=== PATIENT | female | born 1975 | race Caucasian/White ===

== ENCOUNTER 2017-11-12 20:09 | Observation (INO) ==
[2017-11-12 20:38] LABS: Bilirubin,Urine Negative (Negative); Blood,Urine Trace (Negative); Clarity,Urine Cloudy (Clear); Color,Urine Yellow (Yellow); Glucose,Urine (UA) Normal (Normal); Ketones,Urine Negative (Negative); Leukocyte Esterase,Urine Negative (Negative); Nitrite,Urine Negative (Negative); Protein,Urine Negative (Neg-Trace); Specific Gravity,Urine 1.013 (1.010-1.025); Urobilinogen,Urine Normal (Normal)
[2017-11-12 20:41] LABS: Bacteria,Urine None Seen per hpf (None-Few); Hyaline Casts,Urine None Seen per lpf (None-Few); RBC,Urine 0-3 per hpf (0-3); Squamous Epithelial Cell,Urine Many per lpf (None-Few); WBC,Urine 0-3 per hpf (0-3)
[2017-11-12 21:10] LABS: Basophils # 0.1 K/mcL (0.0-0.2); Basophils % 0.8 %; Eosinophils # 0.1 K/mcL (0.0-0.6); Hematocrit 32.9 % (35.3-44.9); Hemoglobin 9.9 g/dL (11.5-15.4); Immature Granulocytes % 0.3 % (0-4); Lymphocytes # 1.4 K/mcL (0.6-4.6); Lymphocytes % 18.6 %; Mean Corpuscular HGB Conc 30.1 g/dL (31.6-35.5); Mean Corpuscular Hemoglobin 23.2 pg (28.0-33.3); Mean Platelet Volume 11.1 fL (9.4-12.4); Monocytes # 0.7 K/mcL (0.0-1.3); Monocytes % 8.8 %; Neutrophils # 5.5 K/mcL (1.6-8.9); Platelet Count 369 K/mcL (140-400); Red Blood Count 4.27 M/mcL (3.82-4.97); Red Cell Distribution Width 16.7 % (11.5-14.5); Segmented Neutrophils % 70.5 %
--- NOTE | 2017-11-12 21:23 | Emergency Department Note ---
Disposition Clinical Impression: Acute cholecystitis, Elevated LFTs Pancreatitis Qualifiers: Chronicity: acute Pancreatitis type: biliary Acute pancreatitis complication: no infection or necrosis Qualified Code(s): K85.10 - Biliary acute pancreatitis without necrosis or infection Anemia Qualifiers: Anemia type: unspecified type Qualified Code(s): D64.9 - Anemia, unspecified Disposition: Admitted As Inpatient Condition: Fair Time of Disposition: 12:25 Abdominal Pain HPI - General Chief Complaint: ED Nausea/Vomiting/Diarrhea Stated Complaint: "gallbladder" Time Seen by Provider: 11/12/17 21:12 Source: patient Mode of arrival: ambulatory Limitations: no limitations Nursing Notes Reviewed: Yes Vital Signs Reviewed: Yes - History of Present Illness HPI Narrative: Patient is a 42-year-old female who presents to [facility] ED with a chief complaint of right upper quadrant abdominal pain, nausea with intermittent vomiting. Past medical history significant for Crohn's disease on Humira. Had surgery at [facility] last July 2016 for her Crohn's disease in which they resected two thirds of her colon and her terminal ileum. States her symptoms have been constant over the last 24 hours. They have been intermittent over the last few weeks. States she saw her primary care physician who ordered an outpatient ultrasound. She had this done at [facility] today but does not know any results. Denies any fevers but has had chills. No chest pain, shortness of breath, problems with urination or bowel movements. Pt Subjective Complaint: abdominal pain Onset (ago): week(s) Consistency: intermittent, Worsening Location: RUQ, epigastric Pain Severity: moderate Pain Scale: 4 Quality: aching Radiation: RUQ, epigastric Improves with: nothing Worsens with: nothing Context: history of similar episodes Associated symptoms: Reports: nausea, vomiting, fever, chills. Denies: constipation Treatments prior to arrival: none - Related Data Allergies Allergy/AdvReac Type Severity Reaction Status Date / Time No Known Allergies Allergy Verified 11/12/17 20:16 All systems ED: reviewed and negative except as stated. Abdominal Pain PMH - Past Medical History Medical history: Reports: non-contributory Female Surgical History: Reports: - Social History Smoking status: Never smoker Alcohol use: Reports: none Drug use: Reports: none Physical Exam - General Limitations: no limitations General appearance: alert, in no apparent distress - Head Head exam: atraumatic, normocephalic, normal inspection - Eye Eye exam: Present: EOMI - ENT ENT exam: normal exam, normal oropharynx, mucous membranes dry - Neck Neck exam: Present: normal inspection, full ROM, trachea midline - Chest Chest inspection: Present: normal inspection, symmetric chest wall rise - Respiratory Respiratory exam: Present: normal lung sounds bilaterally - Cardiovascular Cardiovascular exam: Present: regular rate, normal rhythm, normal heart sounds - Abdominal Exam Abdominal exam: Present: soft, tenderness, normal bowel sounds Abdominal tenderness: Present: RUQ, moderate - Extremities Exam Extremities exam: Present: normal inspection, full ROM. Absent: tenderness, pedal edema - Neurological Exam Neurological exam: Present: alert, oriented X3 - Psychiatric Psychiatric exam: Present: normal affect, normal mood - Skin Skin exam: Present: warm, dry, intact, normal color Course Course Narrative: Patient seen and examined. Right upper quadrant abdominal pain. Recently had ultrasound outpatient today. We will obtain records from [facility]. Abdominal labs ordered. We will place an IV, give a liter of IV fluids and Toradol for pain. We will do an ED bedside ultrasound here. - Reevaluation(s) Reevaluation #1: Labwork shows some mild anemia with a hemoglobin of 9.9. Elevated LFTs. Lipase is also mildly elevated. Per [facility], the ultrasound results have not yet been read and will not be read until tomorrow likely. ED ultrasound here did show signs of a stone and some biliary sludge and mild wall thickening. No signs of pericholecystic fluid at this time. positive sonographic Silva sign. Common bile duct was not visualized. Impression: acute cholecystitis I discussed with surgeon Dr. Pruitt who states he would like the patient to be admitted to medicine. Would like so symptoms started. I discussed with hospitalist Dr. Cota who has accepted patient for admission. Would like a CT abdomen and pelvis with IV contrast ordered as well. Time: 23:50 Vital Signs Temperature 98.1 F 11/12/17 20:10 Pulse Rate 84 11/12/17 20:10 Respiratory Rate 18 11/12/17 20:10 Blood Pressure 124/79 11/12/17 20:10 O2 Sat by Pulse Oximetry 99 11/12/17 20:10 Temperature 98.0 F 11/13/17 00:07 Pulse Rate 76 11/13/17 00:07 Respiratory Rate 14 11/13/17 00:07 Blood Pressure 110/76 11/13/17 00:07 O2 Sat by Pulse Oximetry 97 11/13/17 00:07 Oxygen Delivery Oxygen Delivery Room Air Abdominal Pain - Medical Records Medical records reviewed: Yes I reviewed the patient's medical records. - Lab Data Lab results reviewed: Yes I reviewed the patient's lab results. Result diagrams: 11/12/17 20:43 11/12/17 20:43 Lab Results 11/12/17 11/12/17 11/12/17 Range/Units 20:24 20:43 20:43 WBC 7.7 (4.3-11.1) K/mcL RBC 4.27 (3.82-4.97) M/mcL Hgb 9.9 L (11.5-15.4) g/dL Hct 32.9 L (35.3-44.9) % MCV 77.0 L (83.0-100.0) fL MCH 23.2 L (28.0-33.3) pg MCHC 30.1 L (31.6-35.5) g/dL RDW 16.7 H (11.5-14.5) % Plt Count 369 (140-400) K/mcL MPV 11.1 (9.4-12.4) fL Immature Gran % 0.3 (0-4) % Seg Neutrophils % 70.5 % Lymphocytes % 18.6 % Monocytes % 8.8 % Eosinophils % 1.0 % Basophils % 0.8 % Neutrophils # 5.5 (1.6-8.9) K/mcL Lymphocytes # 1.4 (0.6-4.6) K/mcL Monocytes # 0.7 (0.0-1.3) K/mcL Eosinophils # 0.1 (0.0-0.6) K/mcL Basophils # 0.1 (0.0-0.2) K/mcL Sodium 137 (136-145) mEq/L Potassium 4.3 (3.5-5.1) mEq/L Chloride 105 (98-107) mEq/L Carbon Dioxide 23 (23-29) mEq/L BUN 8 (6-20) mg/dL Creatinine 0.79 (0.60-1.20) mg/dL Est GFR ( Amer) > 60 (> 60) Est GFR (Non-Af Amer) > 60 (> 60) BUN/Creatinine Ratio 10 (6-26) Glucose 101 (70-105) mg/dL Calculated Osmolality 282 (280-300) Calcium 9.6 (8.6-10.3) mg/dL Total Bilirubin 2.4 H (0.3-1.0) mg/dL Direct Bilirubin 1.4 H (0.0-0.2) mg/dL Indirect Bilirubin 1.0 (0.0-1.2) mg/dL AST 376 H (13-39) Units/L ALT 380 H (7-52) Units/L Alkaline Phosphatase 230 H (34-104) Units/L Serum Total Protein 8.2 (6.4-8.9) g/dL Albumin 4.2 (3.5-5.7) g/dL Globulin 4.0 H (2.4-3.5) g/dL Albumin/Globulin Ratio 1.1 (1.1-2.2) Lipase 85 H (11-82) Units/L Urine Color Yellow (Yellow) Urine Clarity Cloudy A (Clear) Urine pH 7.0 (5.0-8.0) pH Units Ur Specific [place] 1.013 (1.010-1.025) Urine Protein Negative (Neg-Trace) mg/dL Urine Glucose (UA) Normal (Normal) mg/dL Urine Ketones Negative (Negative) mg/dL Urine Blood Trace H (Negative) Urine Nitrite Negative (Negative) Urine Bilirubin Negative (Negative) Urine Urobilinogen Normal (Normal) mg/dL Ur Leukocyte Esterase Negative (Negative) Urine Microscopic RBC 0-3 (0-3) per hpf Urine Microscopic WBC 0-3 (0-3) per hpf Ur Squamous Epith Cells Many H (None-Few) per lpf Urine Bacteria None Seen (None-Few) per hpf Hyaline Casts None Seen (None-Few) per lpf Ur Culture Indicated? NO (NO) - Radiology Data Radiology results reviewed: Yes I reviewed the patient's radiology results. Abdomen/Pelvis CT 11/12/17 22:41 IMPRESSION: Subtle mild haziness in the upper abdomen in the region of the duodenum and central mesentery with a few scattered reactive lymph nodes. This is nonspecific but potential etiologies would include mild duodenitis. Pancreatitis less favored. Cholelithiasis without convincing features of cholecystitis. Consider correlation with cholestatic parameters and ultrasound there is ongoing concern. Appendix not discretely identified however there are no pericecal inflammatory changes. Nonobstructive right nephrolithiasis. No left nephrolithiasis, ureteral or urinary bladder stone. D/ / Lemuel Villafuerte / Lemuel Villafuerte Interpreting Provider: Lemuel Villafuerte
[2017-11-12 21:27] LABS: Alanine Aminotransferase 380 Units/L (7-52); Albumin 4.2 g/dL (3.5-5.7); Albumin/Globulin Ratio 1.1 (1.1-2.2); Alkaline Phosphatase 230 Units/L (34-104); Aspartate Amino Transferase 376 Units/L (13-39); BUN/Creatinine Ratio 10 (6-26); Bilirubin,Direct 1.4 mg/dL (0.0-0.2); Bilirubin,Total 2.4 mg/dL (0.3-1.0); Blood Urea Nitrogen 8 mg/dL (6-20); Calcium 9.6 mg/dL (8.6-10.3); Carbon Dioxide 23 mEq/L (23-29); Chloride 105 mEq/L (98-107); Glucose 101 mg/dL (70-105); Lipase 85 Units/L (11-82); Osmolality,Calculated 282 (280-300); Potassium 4.3 mEq/L (3.5-5.1); Sodium 137 mEq/L (136-145); Total Protein 8.2 g/dL (6.4-8.9); eGFR For African Americans > 60 (> 60); eGFR For Non-African Americans > 60 (> 60)
[2017-11-12] MEDS ORDERED: Ondansetron 4 MG/2 ML VIAL IVP ONE (21:36)
[2017-11-12] MEDS ORDERED: 0.9 % Sodium Chloride 1,000 ML IVC ONE (21:36)
[2017-11-12] MEDS ORDERED: Ketorolac 15 MG/ML VIAL IVP ONE (21:55)
--- NOTE | 2017-11-12 21:55 | Emergency Department Note ---
Disposition Clinical Impression: Acute cholecystitis, Pancreatitis, Elevated LFTs, Anemia Disposition: Admitted As Inpatient Condition: Fair General Adult HPI - General Chief complaint: ED Nausea/Vomiting/Diarrhea Stated complaint: "gallbladder" Time Seen by Provider: 11/12/17 21:12 Source: patient Limitations: no limitations Nursing Notes Reviewed: Yes Vital Signs Reviewed: Yes - History of Present Illness Pain Scale: 4 - Related Data Home Medications Medication Instructions Recorded Confirmed Adalimumab [Humira] 40 mg SQ Q2W 11/13/17 11/13/17 Cholecalciferol (D-3) [Vitamin D] 2,000 unit PO DAILY 11/13/17 11/13/17 Cyanocobalamin (B-12) [Vitamin B12] 1,000 mcg IM QMONTH 11/13/17 11/13/17 Previous Rx's Medication Instructions Recorded Ferrous Sulfate 325 mg PO DAILY #30 tablet 11/13/17 Ondansetron HCl [Zofran] 4 mg PO Q8HR PRN #21 tab 11/13/17 Oxycodone HCl/Acetaminophen 1 each PO Q8H PRN 4 Days #12 tablet 11/13/17 [Percocet 5-325 mg Tablet] Allergies Allergy/AdvReac Type Severity Reaction Status Date / Time No Known Allergies Allergy Verified 11/13/17 08:12 Past Medical History - Past Medical History Medical history: Reports: non-contributory - Social History Smoking Status: Never smoker Alcohol use: Reports: none Drug use: Reports: none Physical Exam - General Limitations: no limitations General appearance: alert, in no apparent distress Course Vital Signs Temperature 98.1 F 11/12/17 20:10 Pulse Rate 84 11/12/17 20:10 Respiratory Rate 18 11/12/17 20:10 Blood Pressure 124/79 11/12/17 20:10 O2 Sat by Pulse Oximetry 99 11/12/17 20:10 Temperature 98.2 F 11/13/17 07:53 Pulse Rate 76 11/13/17 07:53 Respiratory Rate 14 11/13/17 07:53 Blood Pressure 112/70 11/13/17 07:53 O2 Sat by Pulse Oximetry 96 11/13/17 07:53 Oxygen Delivery Oxygen Delivery Room Air Medical Decision Making - MDM Narrative Medical decision making narrative: 2230 hrs.: Bedside ultrasound looks a has some sludge and possibly a stone on our view. Regarding talk to surgery about her and see if we can bring her into the hospital. She is in agreement with this plan. 2250 hrs.: Spoke with surgery. They will go and see her admitted to hospitalist. Hospitalist request a CT of the abdomen. Which we will place and get her admitted. She is in agreement with the plan. Surgery consult placed. - Lab Data Result diagrams: 11/13/17 04:37 11/13/17 04:37 Lab Results 11/12/17 11/12/17 11/12/17 Range/Units 20:24 20:43 20:43 WBC 7.7 (4.3-11.1) K/mcL RBC 4.27 (3.82-4.97) M/mcL Hgb 9.9 L (11.5-15.4) g/dL Hct 32.9 L (35.3-44.9) % MCV 77.0 L (83.0-100.0) fL MCH 23.2 L (28.0-33.3) pg MCHC 30.1 L (31.6-35.5) g/dL RDW 16.7 H (11.5-14.5) % Plt Count 369 (140-400) K/mcL MPV 11.1 (9.4-12.4) fL Immature Gran % 0.3 (0-4) % Seg Neutrophils % 70.5 % Lymphocytes % 18.6 % Monocytes % 8.8 % Eosinophils % 1.0 % Basophils % 0.8 % Neutrophils # 5.5 (1.6-8.9) K/mcL Lymphocytes # 1.4 (0.6-4.6) K/mcL Monocytes # 0.7 (0.0-1.3) K/mcL Eosinophils # 0.1 (0.0-0.6) K/mcL Basophils # 0.1 (0.0-0.2) K/mcL Sodium 137 (136-145) mEq/L Potassium 4.3 (3.5-5.1) mEq/L Chloride 105 (98-107) mEq/L Carbon Dioxide 23 (23-29) mEq/L BUN 8 (6-20) mg/dL Creatinine 0.79 (0.60-1.20) mg/dL Est GFR ( Amer) > 60 (> 60) Est GFR (Non-Af Amer) > 60 (> 60) BUN/Creatinine Ratio 10 (6-26) Glucose 101 (70-105) mg/dL Calculated Osmolality 282 (280-300) Calcium 9.6 (8.6-10.3) mg/dL Total Bilirubin 2.4 H (0.3-1.0) mg/dL Direct Bilirubin 1.4 H (0.0-0.2) mg/dL Indirect Bilirubin 1.0 (0.0-1.2) mg/dL AST 376 H (13-39) Units/L ALT 380 H (7-52) Units/L Alkaline Phosphatase 230 H (34-104) Units/L Serum Total Protein 8.2 (6.4-8.9) g/dL Albumin 4.2 (3.5-5.7) g/dL Globulin 4.0 H (2.4-3.5) g/dL Albumin/Globulin Ratio 1.1 (1.1-2.2) Lipase 85 H (11-82) Units/L Urine Color Yellow (Yellow) Urine Clarity Cloudy A (Clear) Urine pH 7.0 (5.0-8.0) pH Units Ur Specific [place] 1.013 (1.010-1.025) Urine Protein Negative (Neg-Trace) mg/dL Urine Glucose (UA) Normal (Normal) mg/dL Urine Ketones Negative (Negative) mg/dL Urine Blood Trace H (Negative) Urine Nitrite Negative (Negative) Urine Bilirubin Negative (Negative) Urine Urobilinogen Normal (Normal) mg/dL Ur Leukocyte Esterase Negative (Negative) Urine Microscopic RBC 0-3 (0-3) per hpf Urine Microscopic WBC 0-3 (0-3) per hpf Ur Squamous Epith Cells Many H (None-Few) per lpf Urine Bacteria None Seen (None-Few) per hpf Hyaline Casts None Seen (None-Few) per lpf Ur Culture Indicated? NO (NO) Attestation Statement - Attestation Attestation: I examined this patient and my medical decision-making was reviewed with the Resident Physician. I agree with the documented findings, disposition and treatment plan as described except to the extent set forth below. Patient seen and evaluated by the ER resident and myself, I agree with her evaluation and management plan, supervised care the patient's stay. Patient presents today with right upper quadrant pain. She has had a history of gallbladder disease. Had an ultrasound done at an outside hospital. We are going to do labs and her try to make her more comfortable and see if we can get her ultrasound results from the other hospital. 2154 hrs. Outside hospital says those results are not printed yet. So we will have to reorder an ultrasound here today.
[2017-11-12] MEDS ORDERED: Piperacillin/Tazobactam 3.375 GM in 0.9 % Sodium Chloride Mini Bag 100 ML IVPB ONE (22:32)
[2017-11-12] MEDS ORDERED: Isovue-370 500 ML INFUS..BTL IV ONE (22:41)
[2017-11-13] MEDS ORDERED: Naloxone 0.4 MG/ML INJ IVP PRN (01:08)
[2017-11-13] MEDS ORDERED: 0.9 % Sodium Chloride 1,000 ML IVC SCH (01:15)
[2017-11-13] MEDS ORDERED: *HR* FentaNYL (PF) 100 MCG/2 ML VIAL IVP PRN (01:41)
--- NOTE | 2017-11-13 01:41 | Internal Med History&Physical ---
Date of Encounter: 11/13/17 Time of Encounter: 00:50 Internal Medicine - H&P: HPI Chief complaint: RUQ pain Admitted From: Emergency Dept Plans for Post Hospital Care: Home History of present illness: Ms. Pressley is a 42 year old female [facility] onset of right upper quadrant abdominal pain, protracted nausea, vomiting, diarrhea, and pain radiating to her shoulder blades from her right upper quadrant area. This was all precipitated by eating a hot dog at a work function earlier today. She has had some GI upset and right upper quadrant pain for the last couple weeks. However, today's event was acute and debilitating. She therefore came to the ER and was felt to have symptoms and findings consistent with cholecystitis. She had right upper quadrant ultrasound performed at [facility] in [place] today, but the results have not been finalized yet and are unavailable. A bedside ultrasound in the ER performed by ER staff suggested gallbladder sludge and possible stones. Patient was admitted to hospitalist service with general surgery consult for possible need for cholecystectomy. Patient does have a history of Crohn's disease with partial bowel resection within the past year. As such, I requested a CT scan to be performed in the ER, which reveals patient to have some duodenitis and possible gallbladder stone findings as noted by radiology. Upon my assessment of the patient, she is quite tender in the right upper quadrant. She also has some significant nausea but no vomiting presently. She confirms that certain foods bother her, particularly greasy and fatty foods. Family history is negative for any gallbladder disease or IBD. She follows with her GI specialist at [facility] in [place] and has been on Humira for the last 7 years. She sees a colorectal surgeon at [facility] and had her partial colon resection performed there last year. Past Med Surg Social Fam HX - Past Medical History Attestation: Yes The following information was validated with the patient. Source: patient, old records reviewed Medical history: other (Crohn's) Psychiatric history: no psych history - Past Surgical History Surgical History: colectomy (partial) - Social History Smoking Status: Never smoker Alcohol use: none Drug use: none Occupational status: employed Current living situation: Home, With Family Activity Level: Independent ambulation Recent Out of Country Travel Within the Last 8 Weeks: No - Additional Family History Additional family history: No FH GB disease or IBD Internal Medicine - H&P: Meds 3 Allergy/AdvReac Type Severity Reaction Status Date / Time No Known Allergies Allergy Verified 11/12/17 20:16 - Constitutional Constitutional: no chills, no fever(s), no night sweats - EENT Eyes: no blurry vision, no change in vision Ears: no ear pain, no tinnitus Nose, mouth and throat: no nasal congestion, no sinus pressure, no sore throat - Cardiovascular Cardiovascular ROS IM: no chest pain, no dyspnea, no dyspnea on exertion - Respiratory Respiratory: no cough, no hemoptysis, no dyspnea on exertion, no chest congestion, no excessive phlegm production - Gastrointestinal Gastrointestinal: abdominal pain, diarrhea, nausea, vomiting, no hematemesis, no hematochezia, no melena - Genitourinary Genitourinary: no dysuria, no flank pain, no hematuria - Musculoskeletal Musculoskeletal ROS IM: no arthralgias, no back pain, no muscle cramps - Integumentary Integumentary IM: no rash, no jaundice - Neurological Neurological ROS: no dizziness, no focal weakness, no frequent falls, no headache(s) - Psychiatric Psychiatric: no anxiety, no depression - Endocrine Endocrine IM: no polydipsia, no polyuria - Allergic/Immunologic Allergic/Immunologic: GI upset with certain foods, no wheezing - Constitutional Vitals: Temp Pulse Resp BP Pulse Ox 98.0 F 76 14 110/76 97 11/13/17 00:07 11/13/17 00:07 11/13/17 00:07 11/13/17 00:07 11/13/17 00:07 General appearance: Present: cooperative, mild distress, A&O X 3, pleasant, answers questions appropriately - Head Head exam: Present: normal inspection - Eye Eye exam: Present: EOMI, normal appearance, PERRL. Absent: scleral icterus Pupils: Present: normal accommodation - ENT ENT exam: Present: mucous membranes dry, normal exam, normal oropharynx - Neck Neck exam general surgery: Present: supple. Absent: tenderness, nuchal rigidity , thyromegaly - Respiratory Respiratory exam: Present: CTAB. Absent: chest wall tenderness, rales, respiratory distress, rhonchi, wheezes - Cardiovascular Cardiovascular exam: Present: RRR, +S1, +S2. Absent: diastolic murmur, systolic murmur - GI/Abdominal GI/Abdominal exam: Present: guarding, normal bowel sounds, soft, tenderness (RUQ ), no peritoneal signs. Absent: hepatomegaly, rebound, splenomegaly - Extremities Exam Extremities exam: Present: normal capillary refill, normal inspection, radial pulses palpable and symmetrical. Absent: calf tenderness, tenderness, warm - Back Exam Back exam: Present: normal inspection. Absent: CVA tenderness (L), CVA tenderness (R) - Neurological Exam Neurological exam: Present: alert, CN II-XII intact, oriented X3, no focal deficits, strengths equal and symetr throughout - Psychiatric Psychiatric exam: Present: normal affect, normal mood - Skin Skin exam: Present: dry, warm. Absent: rash Internal Med - H&P Results - Labs CBC & Chem 7: 11/12/17 20:43 11/12/17 20:43 - Assessment and plan (1) Acute cholecystitis Current Visit: Yes Status: Suspected Assessment and plan: 1. Try to obtain GB U/S report/images from [facility]. 2. npo. 3. Will continue IV Zosyn and IVF Flagyl. 4. Surgery consulted through ER -- Dr. Pruitt. 5. Pain and nausea control. (2) Crohns disease Current Visit: Yes Status: Chronic Assessment and plan: 1. Patient follows with GI at [facility] -- outpatient follow up. 2. May need to obtain old surgical record from [facility] regarding her recent partial colon resection last year. Qualifiers: Gastrointestinal tract location: small and large intestine Digestive disease complication type: other complication Qualified Code(s): K50.818 - Crohn's disease of both small and large intestine with other complication (3) Elevated LFTs Current Visit: Yes Status: Acute Assessment and plan: 1. Likely due to GB disease. 2. Trend LFT's. 3. Consult GI if necessary. (4) DVT prophylaxis Current Visit: Yes Status: Acute Assessment and plan: 1. Heparin SQ.
[2017-11-13] MEDS ORDERED: *HR* Heparin 5,000 UNIT/ML VIAL SQ SCH (06:00)
[2017-11-13] MEDS ORDERED: Pantoprazole 40 MG VIAL IVP SCH (06:00)
[2017-11-13 06:10] LABS: Basophils # 0.1 K/mcL (0.0-0.2); Basophils % 0.9 %; Eosinophils # 0.1 K/mcL (0.0-0.6); Eosinophils % 2.3 %; Hematocrit 27.7 % (35.3-44.9); Hemoglobin 8.4 g/dL (11.5-15.4); Immature Granulocytes % 0.5 % (0-4); Immature Platelets 6.7 % (1.1-6.1); Lymphocytes # 1.3 K/mcL (0.6-4.6); Lymphocytes % 22.4 %; Mean Corpuscular HGB Conc 30.3 g/dL (31.6-35.5); Mean Corpuscular Hemoglobin 23.5 pg (28.0-33.3); Mean Corpuscular Volume 77.6 fL (83.0-100.0); Mean Platelet Volume 11.7 fL (9.4-12.4); Monocytes # 0.6 K/mcL (0.0-1.3); Monocytes % 10.4 %; Neutrophils # 3.7 K/mcL (1.6-8.9); Platelet Count 304 K/mcL (140-400); Red Blood Count 3.57 M/mcL (3.82-4.97); Red Cell Distribution Width 16.3 % (11.5-14.5); Segmented Neutrophils % 63.5 %
[2017-11-13 06:15] LABS: Alanine Aminotransferase 286 Units/L (7-52); Albumin 3.5 g/dL (3.5-5.7); Albumin/Globulin Ratio 1.1 (1.1-2.2); Alkaline Phosphatase 202 Units/L (34-104); Aspartate Amino Transferase 206 Units/L (13-39); BUN/Creatinine Ratio 10 (6-26); Bilirubin,Total 1.3 mg/dL (0.3-1.0); Blood Urea Nitrogen 7 mg/dL (6-20); Calcium 8.5 mg/dL (8.6-10.3); Carbon Dioxide 21 mEq/L (23-29); Chloride 112 mEq/L (98-107); Globulin 3.3 g/dL (2.4-3.5); Glucose 100 mg/dL (70-105); Lipase 76 Units/L (11-82); Magnesium 2.1 mg/dL (1.6-2.6); Osmolality,Calculated 284 (280-300); Potassium 3.9 mEq/L (3.5-5.1); Sodium 138 mEq/L (136-145); Total Protein 6.8 g/dL (6.4-8.9); eGFR For African Americans > 60 (> 60); eGFR For Non-African Americans > 60 (> 60)
[2017-11-13 06:44] LABS: Activated Partial Thrombo Time 29.8 Seconds (26.0-36.0)
[2017-11-13 06:45] LABS: Prothrombin Time 10.9 Seconds (9.4-12.1)
--- NOTE | 2017-11-13 07:35 | General Surg History&Physical ---
Date of Encounter: 11/13/17 Time of Encounter: 07:34 Assessment and Plan (1) Biliary colic Current Visit: Yes Status: Acute 42F h/o crohn's now with biliary colic x 5 weeks, worsening over last 2 days; US and CT consistent with cholelithiasis; no evidence of obstruction on labs or PE; pain control CLD okay for discharge with plan for surgery in AM discussed with patient; The assessment and plan as outlined above was discussed with the patient and/or family members who expressed understanding and agreement. All questions were answere. History of Present Illness Chief complaint: abdominal pain HPI: Ms. Pressley is a 42 year old female h/o Crohn's disease s/p what sounds like an extended right christopher colectomy peformed laparoscopically who presents with a 5 week history of recurrent post prandial right upper quadrant abdominal pain with associated nausea and bloating. She also states that over the last week the pain radiates to her right shoulder. She states that since she started eating more meat and fried foods, her symptoms have become more frequent lasting up to six hours at times. She was admitted because her pain was persistent. Surgery was consulted for management recommendations. Past Med Surg Social Fam HX - Past Medical History Medical history: other (Crohn's) Psychiatric history: no psych history - Past Surgical History Surgical History: colectomy (partial) - Social History Smoking Status: Never smoker Alcohol use: none Drug use: none - Additional Family History Additional family history: non contributory Medications and Allergies Adalimumab [Humira] 40 mg SQ Q2W 11/13/17 [History] Cholecalciferol (D-3) [Vitamin D] 2,000 unit PO DAILY 11/13/17 [History] Cyanocobalamin (B-12) [Vitamin B12] 1,000 mcg IM QMONTH 11/13/17 [History] 3 Allergy/AdvReac Type Severity Reaction Status Date / Time No Known Allergies Allergy Verified 11/13/17 08:12 Review of Systems All systems PM: The remainder of the systems were reviewed and are negative General Surgery Exam Initial Vital Signs Temp Pulse Resp BP Pulse Ox 98.1 F 84 18 124/79 99 11/12/17 20:10 11/12/17 20:10 11/12/17 20:10 11/12/17 20:10 11/12/17 20:10 - General physical appearance well developed, no distress - Eyes other (no scleral icterus), normal ocular movement - ENT normocephalic - Neck no lymphadectomy - Respiratory normal expansion, normal respiratory effort - Cardiovascular Cardiovascular exam: Present: RRR - Abdomen Abdomen general surgery: Present: soft, tender Abdominal Tenderness: Present: RUQ ((-)hood's sign;) - Integumentary Integumentary general surgery: Present: warm and dry - Neurologic Present: CN 2-12 grossly intact - Musculoskeletal Present: normal posture, other (FROM in UE/LE bilaterally) - Psychiatric Psychiatric general surgery: Present: A&Ox3 Results - Labs 11/13/17 04:37 11/13/17 04:37 Abnormal lab results RBC 3.57 M/mcL (3.82-4.97) L 11/13/17 04:37 Hgb 8.4 g/dL (11.5-15.4) L D 11/13/17 04:37 Hct 27.7 % (35.3-44.9) L 11/13/17 04:37 MCV 77.6 fL (83.0-100.0) L 11/13/17 04:37 MCH 23.5 pg (28.0-33.3) L 11/13/17 04:37 MCHC 30.3 g/dL (31.6-35.5) L 11/13/17 04:37 RDW 16.3 % (11.5-14.5) H 11/13/17 04:37 Immature Plt Fraction 6.7 % (1.1-6.1) H 11/13/17 04:37 Chloride 112 mEq/L (98-107) H 11/13/17 04:37 Carbon Dioxide 21 mEq/L (23-29) L 11/13/17 04:37 Calcium 8.5 mg/dL (8.6-10.3) L 11/13/17 04:37 Total Bilirubin 1.3 mg/dL (0.3-1.0) H 11/13/17 04:37 Direct Bilirubin 1.4 mg/dL (0.0-0.2) H 11/12/17 20:43 AST 206 Units/L (13-39) H 11/13/17 04:37 ALT 286 Units/L (7-52) H 11/13/17 04:37 Alkaline Phosphatase 202 Units/L (34-104) H 11/13/17 04:37 Urine Clarity Cloudy (Clear) A 11/12/17 20:24 Urine Blood Trace (Negative) H 11/12/17 20:24 Ur Squamous Epith Cells Many per lpf (None-Few) H 11/12/17 20:24 Diabetes panel 11/13/17 Range/Units 04:37 Sodium 138 (136-145) mEq/L Potassium 3.9 (3.5-5.1) mEq/L Chloride 112 H (98-107) mEq/L Carbon Dioxide 21 L (23-29) mEq/L BUN 7 (6-20) mg/dL Creatinine 0.71 (0.60-1.20) mg/dL Glucose 100 (70-105) mg/dL Calcium 8.5 L (8.6-10.3) mg/dL AST 206 H (13-39) Units/L ALT 286 H (7-52) Units/L Alkaline Phosphatase 202 H (34-104) Units/L Albumin 3.5 (3.5-5.7) g/dL Calcium panel 11/13/17 Range/Units 04:37 Calcium 8.5 L (8.6-10.3) mg/dL Albumin 3.5 (3.5-5.7) g/dL Pituitary panel 11/13/17 Range/Units 04:37 Sodium 138 (136-145) mEq/L Potassium 3.9 (3.5-5.1) mEq/L Chloride 112 H (98-107) mEq/L Carbon Dioxide 21 L (23-29) mEq/L BUN 7 (6-20) mg/dL Creatinine 0.71 (0.60-1.20) mg/dL Glucose 100 (70-105) mg/dL Calcium 8.5 L (8.6-10.3) mg/dL Adrenal panel 11/13/17 Range/Units 04:37 Sodium 138 (136-145) mEq/L Potassium 3.9 (3.5-5.1) mEq/L Chloride 112 H (98-107) mEq/L Carbon Dioxide 21 L (23-29) mEq/L BUN 7 (6-20) mg/dL Creatinine 0.71 (0.60-1.20) mg/dL Glucose 100 (70-105) mg/dL Calcium 8.5 L (8.6-10.3) mg/dL Total Bilirubin 1.3 H (0.3-1.0) mg/dL AST 206 H (13-39) Units/L ALT 286 H (7-52) Units/L Alkaline Phosphatase 202 H (34-104) Units/L Albumin 3.5 (3.5-5.7) g/dL All other labs normal. - Imaging CT scan - abdomen: report reviewed, image reviewed CT scan - pelvis: report reviewed, image reviewed (all imaging was evaluated and interpreted by me in combination with radiology reads)
[2017-11-13 07:59] VITALS: BP 112/70
[2017-11-13] MEDS ORDERED: Piperacillin/Tazobactam 3.375 GM in 0.9 % Sodium Chloride Mini Bag 100 ML IVPB SCH (08:00)
[2017-11-13] MEDS ORDERED: MetroNIDAZOLE 500 MG/100 ML 500 MG/100 ML BAG IVPB SCH (08:00)
--- NOTE | 2017-11-13 11:10 | Discharge Summary ---
- NOTES TO OUTPATIENT PROVIDER Notes to Outpatient Provider: - Follow-up hemoglobin, iron supplements. Date of Encounter: 11/13/17 Time of Encounter: 11:08 - Discharge Diagnosis (1) Biliary colic Priority: Primary Status: Acute (2) Elevated LFTs Priority: Secondary Status: Acute (3) Crohns disease Priority: Secondary Status: Chronic Qualifiers: Gastrointestinal tract location: small and large intestine Digestive disease complication type: other complication Qualified Code(s): K50.818 - Crohn's disease of both small and large intestine with other complication (4) DVT prophylaxis Priority: Secondary Status: Acute Hospital course: Ms. Pressley is a 42 year old female who presents to the ER with sudden onset of right upper quadrant abdominal pain, protracted nausea, vomiting, diarrhea, and pain radiating to her shoulder blades from her right upper quadrant area. This was all precipitated by eating a hot dog at a work function earlier. She has had some GI upset and right upper quadrant pain for the last couple weeks. She had right upper quadrant ultrasound performed at [facility] in [place], but the results have not been finalized yet and were unavailable. A bedside ultrasound in the ER performed by ER staff suggested gallbladder sludge and possible stones. Patient was admitted to hospitalist service with general surgery consult for possible need for cholecystectomy. Patient does have a history of Crohn's disease with partial bowel resection within the past year. A CT in ED showed duodenitis and possible gallbladder stone formation. There was no evidence of cholecystitis. She was empericallystarted on IV Zosyn and Flagyl. Surgery team was consulted. After review, there was no cholecystitis and patient did not need antibiotics. She was treated symptomatically. She has been arranged for Surgery as outpatient in 4 days, (Friday). Hemoglobin was noted to be 9.9 and then 8.4, no prior labs were available, but patient did note that this is close to her baseline one month ago. She was discharged home in stable condition with Zofran, Percocet, and Ferrous Sulfate tabs with plan for cholecystectomy in 4 days. - Time Spent with Patient Total time spent providing and/or coordinating discharge services: - Discharge Medications Home Medications: Adalimumab [Humira] 40 mg SQ Q2W 11/13/17 [History] Cholecalciferol (D-3) [Vitamin D] 2,000 unit PO DAILY 11/13/17 [History] Cyanocobalamin (B-12) [Vitamin B12] 1,000 mcg IM QMONTH 11/13/17 [History] Ferrous Sulfate 325 mg PO DAILY #30 tablet 11/13/17 [Rx] Ondansetron HCl [Zofran] 4 mg PO Q8HR PRN #21 tab 11/13/17 [Rx] Oxycodone HCl/Acetaminophen [Percocet 5-325 mg Tablet] 1 each PO Q8H PRN 4 Days #12 tablet 11/13/17 [Rx] Allergies/Adverse Reactions: 3 Allergy/AdvReac Type Severity Reaction Status Date / Time No Known Allergies Allergy Verified 11/13/17 08:12 Date of admission: 11/12/17 23:14 Primary care physician: PCP NONE Consults: 11/13/17 01:10 Consult to Physician [CONS] Routine Consulting Provider: Pedro Pruitt Reason for Consult: RUQ pain; gallstones Call Completed: No Discharging clinician: Linda Alba - Constitutional Vitals: Temp Pulse Resp BP Pulse Ox 98.2 F 76 14 112/70 96 11/13/17 07:53 11/13/17 07:53 11/13/17 07:53 11/13/17 07:53 11/13/17 07:53 General appearance: Present: cooperative, mild distress, A&O X 3, pleasant, answers questions appropriately - Head Head exam: Present: atraumatic, normocephalic - Eye Eye exam: Present: PERRL, conjuntiva pink, sclera anicteric Pupils: Present: PERRL - Neck Neck exam general surgery: Present: supple, trachea midline. Absent: lymphadenopathy - Respiratory Respiratory exam: Present: CTAB. Absent: accessory muscle use, rales, rhonchi, wheezes - Cardiovascular Cardiovascular exam: Present: RRR, +S1, +S2. Absent: diastolic murmur, gallop, rubs, systolic murmur - GI/Abdominal GI/Abdominal exam: Present: normal bowel sounds, soft, tenderness, no peritoneal signs. Absent: distended - Extremities Exam Extremities exam: Present: warm, radial pulses palpable and symmetrical. Absent : calf tenderness, cyanotic, pedal edema - Neurological Exam Neurological exam: Present: CN II-XII intact, oriented X3, no focal deficits. Absent: pronater drift, facial droop, speech deficit - Skin Skin exam: Present: dry, intact - Patient Status Disposition: Home, Self-Care Condition: Fair Functional capacity at discharge: independent ambulation Overall status at discharge: patient is progressing back to baseline - Discharge Instructions Instructions: Laparoscopic Cholecystectomy (DC) Forms: Inpatient Work/School Release - Diet and Activity Activity: return to work once cleared by your PCP/specialist Diet: low fat, low cholesterol
== END 2017-11-13 12:40 | disposition home or self-care (01) ==
LOC: EMEROO 20:09 → 3ANU 20:09
PROVIDERS: ADMIT Pediatrics; ATTEND Pediatrics